=== PATIENT | female | born 1990 | race Caucasian/White ===

== ENCOUNTER 2017-02-17 19:03 | Inpatient (IN) | payer MEDICAID ==
[2017-02-05 11:30] VITALS: BMI 25.9
[2017-02-17] MEDS ORDERED: Phenaphthazine-PH Test Paper VI ONE (20:10)
[2017-02-17] MEDS ORDERED: Penicillin G Potassium 5 MU in Sodium Chloride 0.9% 50 ML IVPB ONE (20:23)
[2017-02-17] MEDS ORDERED: Lactated Ringer's 1,000 ML IV SCH ×2 (20:30)
[2017-02-17] MEDS ORDERED: Oxytocin 30 UNITS in Sodium Chloride 0.9% 500 ML IV SCH (20:30)
[2017-02-17 21:16] LABS: BASO # 0.1 K/uL (0.0-0.2); BASO % 1.4 % (0.0-2.0); EOS % 0.2 % (0.0-4.0); LYMPH # 2.4 K/uL (1.0-4.3); LYMPH % 25.9 % (20.0-40.0); MEAN CELL VOLUME 87.4 fl (81.0-99.0); MEAN CORPUSCULAR HEMOGLOBIN 28.7 pg (27.0-31.0); MEAN CORPUSCULAR HGB CONC 32.9 g/dL (33.0-37.0); MEAN PLATELET VOLUME 8.8 fl (7.2-11.7); MONO # 0.8 K/uL (0.0-0.8); MONO % 8.2 % (0.0-10.0); NEUT # 6.1 K/uL (1.8-7.0); NEUT % 64.3 % (50.0-75.0); NRBC % 0.1 % (0.0-0.0); WHITE BLOOD COUNT 9.5 K/uL (4.8-10.8)
[2017-02-17] MEDS ORDERED: Lidocaine 1% Inj (20ml) ONE (21:34)
[2017-02-17] MEDS ORDERED: Oxycodone/Acetaminophen 5/325 mg Tab PO PRN ×2 (21:55)
[2017-02-18] MEDS ORDERED: Oxycodone/Acetaminophen 5/325 mg Tab PO PRN ×2 (00:16)
[2017-02-18 00:48] VITALS: RESP 18
--- NOTE | 2017-02-18 03:24 | OBHP ---
Datetime: 02/17/2017 23:03 IP Adm Impression: Term, intrauterine IP Admit Plan: Admit to unit; Initiate labor protocol; Observation/Evaluation Pelvic Type - PN: Adequate Extremities - PN: Normal Abdomen - PN: Normal Back - PN: Normal Breast - PN: Not Done Lungs - PN: Normal Heart - PN: Normal Thyroid - PN: Normal Neurologic - PN: Normal HEENT - PN: Normal General - PN: Normal FHR - Baseline A Provider: 140 Amniotic Fluid Color, Provider: Clear Membranes, Provider: Ruptured Comments, ACOG Physical Exam: GBS positive Pool Provider: Positive Nitrazine Provider: Positive EGA AdmitDate IP: 38.2 Vital Signs Provider: Reviewed; Within Normal Limits IP Indication for Induction: Not Applicable IP Chief Complaint: Uterine contractions; Maternal discomfort; evaluation NICHD Variability Prov Fetus A: Moderate 6-25bpm NICHD Accel Fetus A IP Provider: [id number] FHR Category Provider Fetus A: Category I NICHD Decel Fetus A IP Provider: None Dilatation, Provider: 4 Effacement, Provider: 80 Station, Provider: -2 Genitourinary Exam: Normal DTRs - PN: Normal Datetime: 02/17/2017 21:57 Admit Comment, IP Provider: 26 y/o female, , IUP@38.2 weeks GA, RICARDO 12 by LMP, comes to the OB ED c/o CTX 3 to 5 mins a part which started at 4:00PM. patient denies any LOF, BV and reports good FM . patient denies any nausea, vomiting , fever, chills. PNC: [facility] PNL: GBS positive. HIV/RPR/HepB negative. PNI: no issues with so far as per pt. PMH: Denies PSH: Denies OBGYN: 2xABS Allg: NKDA Meds: PNV SH: denies any alcohol, smoking or illicit drug use FH: DMII ROS: As per HPI VS: Stable 110/79 FHR 140 PE: Unremarkable Spec exam: ruptured Pelvic exam: 4cm/80/-2 A/P: 26 y/o female, , IUP@38.2 weeks GA, RICARDO 03/01 by LMP, comes to the [facility] c/o CTX 3 to 5 mins a p art which started at 4:00PM. - Admit to L_D - Labs - Penicillin for GBS positive - Initiate Labor Protocol Case discussed with Dr. Hurley --- Audra Sotomayor, PGY-1 I'll be attending addendum: Patient seen and examined by me agree with above assessment and plan. Presentation-Admit: Vertex Contraction Comments Provider: 2-6min
--- NOTE | 2017-02-18 03:41 | OBADHP ---
Datetime: 02/17/2017 23:03 Admit Comment, IP Provider: 26 y/o female, , IUP@38.2 weeks GA, RICARDO 12/9 by LMP, comes to the OB ED c/o CTX 3 to 5 mins a part which started at 4:00PM. patient denies any LOF, BV and reports good FM . patient denies any nausea, vomiting , fever, chills. PNC: [facility] PNL: GBS positive. HIV/RPR/HepB negative. PNI: no issues with so far as per pt. PMH: Denies PSH: Denies OBGYN: 2xABS Allg: NKDA Meds: PNV SH: denies any alcohol, smoking or illicit drug use FH: DMII ROS: As per HPI VS: Stable 110/79 FHR 140 PE: Unremarkable Spec exam: ruptured Pelvic exam: 4cm/80/-2 A/P: 26 y/o female, , IUP@38.2 weeks GA, RICARDO 12/9 by LMP, comes to the [facility] c/o CTX 3 to 5 mins a p art which started at 4:00PM. - Admit to L_D - Labs - Penicillin for GBS positive - Initiate Labor Protocol Case discussed with Dr. Hurley --- Audra Sotomayor, PGY-1 OB attending addendum: Patient seen and examined by me. Agree with above assessment and plan. Pelvic Type - PN: Adequate Extremities - PN: Normal Abdomen - PN: Normal Back - PN: Normal Breast - PN: Not Done Lungs - PN: Normal Heart - PN: Normal Thyroid - PN: Normal Neurologic - PN: Normal HEENT - PN: Normal General - PN: Normal FHR - Baseline A Provider: 140 Amniotic Fluid Color, Provider: Clear Membranes, Provider: Ruptured Comments, ACOG Physical Exam: GBS positive Pool Provider: Positive Nitrazine Provider: Positive Vital Signs Provider: Reviewed; Within Normal Limits IP Chief Complaint: Uterine contractions; Maternal discomfort; evaluation NICHD Variability Prov Fetus A: Moderate 6-25bpm NICHD Accel Fetus A IP Provider: 15X15 FHR Category Provider Fetus A: Category I NICHD Decel Fetus A IP Provider: None Dilatation, Provider: 4 Effacement, Provider: 80 Station, Provider: -2 Genitourinary Exam: Normal DTRs - PN: Normal EGA AdmitDate IP: 38.2 IP Adm Impression: Term, intrauterine IP Admit Plan: Admit to unit; Initiate labor protocol; Observation/Evaluation Datetime: 02/17/2017 21:57 Presentation-Admit: Vertex Contraction Comments Provider: 2-6min
[2017-02-18 06:26] LABS: BASO # 0.1 K/uL (0.0-0.2); BASO % 0.7 % (0.0-2.0); EOS % 0.1 % (0.0-4.0); HEMATOCRIT 33.2 % (34.0-47.0); LYMPH # 2.4 K/uL (1.0-4.3); LYMPH % 19.4 % (20.0-40.0); MEAN CELL VOLUME 87.8 fl (81.0-99.0); MEAN CORPUSCULAR HEMOGLOBIN 28.8 pg (27.0-31.0); MEAN CORPUSCULAR HGB CONC 32.8 g/dL (33.0-37.0); MEAN PLATELET VOLUME 8.2 fl (7.2-11.7); MONO # 0.9 K/uL (0.0-0.8); MONO % 7.7 % (0.0-10.0); NEUT # 8.8 K/uL (1.8-7.0); NEUT % 72.1 % (50.0-75.0); RED CELL DISTRIBUTION WIDTH 13.6 % (11.5-14.5); WHITE BLOOD COUNT 12.2 K/uL (4.8-10.8)
[2017-02-18] MEDS ORDERED: Benzocaine/Menthol SPRAY TOP PRN (08:22)
[2017-02-19 18:10] VITALS: BP 102/66; PULSE 94; TEMP 97.9
== END 2017-02-19 13:30 | disposition home or self-care (01) | DRG 373 ==
LOC: H.EROB2 19:03 → H.L&D 20:19 → H.OB/GYN 02-18 00:10
PROVIDERS: ADMIT Obstetrics & Gynecology; ATTEND Obstetrics & Gynecology
PROC: 10E0XZZ Delivery of Products of Conception, External Approach (ICD-10-PCS; principal; 2017-02-17)
PROC: 0KQM0ZZ Repair Perineum Muscle, Open Approach (ICD-10-PCS; 2017-02-17)
PROC: 4A1HXCZ Monitoring of Products of Conception, Cardiac Rate, External Approach (ICD-10-PCS; 2017-02-17)
DX: O62.3 Precipitate labor (principal); O70.1 Second degree perineal laceration during delivery; Z37.0 Single live birth; Z3A.38 38 weeks gestation of pregnancy